=== PATIENT | female | born 1990 | race Caucasian/White ===

== ENCOUNTER 2021-05-05 18:33 | Emergency (ER) | payer OTHER ==
[~2021-05-05 18:33] MED LIST: COLLAGEN PO; HAIR, SKIN AND1 EAC3 PO; MIRALAX PO; MULTIVITAMIN PATCH TOP; NAPROXEN250 MG PO; NORCO 5-325 TA1 EACH PO; VITAMIN B1 PO; [UNRECOGNIZED DRUG - OTHER] PO
[2021-05-05 22:02] LABS: HEMOGLOBIN 11.6 gm/dl (12.3-15.3); RED BLOOD COUNT 3.86 M/UL (4.00-5.10); WHITE BLOOD COUNT 7.1 K/UL (4.5-11.0)
[2021-05-05 22:25] LABS: BUN/CREATININE RATIO 11 (0-10)
[2021-05-07] MEDS ORDERED: ACCUTANE40 MG PO (07:18)
[2021-05-07] MEDS ORDERED: PERCOCET 5-3251 EACH PO (08:33)
[2021-05-07] MEDS ORDERED: IBUPROFEN600 MG PO (08:33)
== END 2021-05-06 06:20 | disposition home or self-care (01) ==
LOC: ER1 18:33
PROVIDERS: Physician Assistant
DX: O99.891 Other specified diseases and conditions complicating pregnancy (principal); N83.11 Corpus luteum cyst of right ovary; Z3A.01 Less than 8 weeks gestation of pregnancy; Z88.5 Allergy status to narcotic agent; Z91.048 Other nonmedicinal substance allergy status
CPT/HCPCS: 76817; 80053; 81001; 84702; 85025; 86850; 86900; 86901; 99284; J2790

== ENCOUNTER → 2021-05-07 | Day surgery (SDC) | payer OTHER ==
[~2021-05-07] MED LIST changes: +ACCUTANE40 MG PO; +IBUPROFEN600 MG PO; +PERCOCET 5-3251 EACH PO
[2021-05-07 07:17] LABS: HEMOGLOBIN 11.2 gm/dl (12.3-15.3); RED BLOOD COUNT 3.86 M/UL (4.00-5.10); WHITE BLOOD COUNT 6.4 K/UL (4.5-11.0)
== END | disposition home or self-care (01) ==
LOC: OR 06:37
PROVIDERS: Obstetrics & Gynecology
DX: O00.101 Right tubal pregnancy without intrauterine pregnancy (principal); K66.1 Hemoperitoneum; N83.8 Other noninflammatory disorders of ovary, fallopian tube and broad ligament; Z98.51 Tubal ligation status; Z98.84 Bariatric surgery status; Z97.5 Presence of (intrauterine) contraceptive device; Z88.5 Allergy status to narcotic agent; Z80.49 Family history of malignant neoplasm of other genital organs; Z20.822 Contact with and (suspected) exposure to COVID-19
CPT/HCPCS: 36415; 84702; 85025; J1100; J1170; J2001; J2250; J2370; J2405; J2704; J2710; J2795; J3010; J7120; U0002